=== PATIENT | male | born 1995 | race Caucasian/White ===

== ENCOUNTER 2022-04-15 15:01 | Emergency (ER) | payer OTHER ==
[~2022-04-15] VITALS: Ht 188 cm; Wt 104.5 kg
[2022-04-15 15:43] VITALS: BP 134/84
[2022-04-15] MEDS ORDERED: cefTRIAXone SOD 1,000 MG VL IM ONE (16:00)
[2022-04-15] MEDS ORDERED: AZIT500T66 PO (16:05)
== END 2022-04-15 16:37 | disposition home or self-care (01) ==
LOC: ER 15:01
DX: J02.9 Acute pharyngitis, unspecified (principal); Z79.2 Long term (current) use of antibiotics
CPT/HCPCS: 96372; 99283; J0696